=== PATIENT | female | born 1940 | race Caucasian/White ===

== ENCOUNTER 2017-02-18 10:41 | Emergency (ER) | payer OTHER, BC ==
[~2017-02-18] VITALS: Ht 152.4 cm; Wt 82.0 kg
[~2017-02-18 10:41] MED LIST: ASPIR 8181 M1 PO; ASPIR-TRIN325 M1 PO; CELEXA20 MG PO; Flonase BOTH NARES; Klonopin PO; LEXAPRO20 MG PO; NORCO 10/3251 TABLET PO; OMEGA 3-6-91200 MG PO; PERCOCET 10/1 TABLET PO; PRILOSEC20 MG PO; TOPROL XL50 MG PO; Toprol XL PO; Tylenol Regular Stre PO; Vicodin,Lortab 5/500 PO; ZOCOR10 MG PO
[2017-02-18] MEDS ORDERED: LYRICA50 MG PO (10:55)
[2017-02-18] MEDS ORDERED: BUPROPION XL150 MG PO (10:56)
[2017-02-18] MEDS ORDERED: LIOTHYRONINE SO5 MCG PO (10:57)
[2017-02-18] MEDS ORDERED: LEVOTHYROXINE88 MCG PO (10:57)
[2017-02-18] MEDS ORDERED: LAMICTAL25 MG PO (10:58)
[2017-02-18] MEDS ORDERED: PANTOPRAZOLE SO40 MG PO (11:00)
[2017-02-18] MEDS ORDERED: FOSAMAX70 MG PO (11:00)
[2017-02-18 11:53] LABS: BASOPHIL COUNT 0.1 K/uL (0-0.1); EOSINOPHIL (%) 1.6 % (0-5); EOSINOPHIL COUNT 0.2 K/uL (0-0.3); IMMATURE GRANULOCYTE (%) 0.3 % (0.0-0.7); INSTRUMENT ABS NEUTROPHIL CT 7.8 K/uL; LYMPHOCYTE COUNT 3.2 K/uL (1.0-2.8); MCH 24.1 PG (29.0-34.0); MCV 80.3 FL (83-99); MEAN PLAT.VOLUME 8.9 uM^3 (9.5-12.4); MONOCYTE (%) 8.6 % (3-12); MONOCYTE COUNT 1.1 K/uL (0-0.8); NEUTROPHIL (%) 63.1 % (45-76); NEUTROPHIL COUNT 7.8 K/uL (1.8-6.4); PLATELET COUNT 365 K/uL (156-360); RBC DIS.WIDTH-SD 46.4 % (39-53); RED BLOOD COUNT 4.73 M/uL (3.80-5.20); WHITE BLOOD COUNT 12.3 K/uL (4.1-10.2)
[2017-02-18 12:05] LABS: CHLORIDE 105 mEq/L (99-109)
[2017-02-18 12:06] LABS: POTASSIUM 4.3 mEq/L (3.7-5.4); SODIUM 140 mEq/L (136-147)
[2017-02-18 12:08] LABS: GLUCOSE 97 mg/dL (70-99)
[2017-02-18 12:09] LABS: ANION GAP 8 MEQ/L (2-14)
[2017-02-18 12:10] LABS: TOTAL BILIRUBIN 0.3 mg/dL (0.0-1.0)
[2017-02-18 12:11] LABS: ALKALINE PHOSPHATASE 71 IU/L (3-129); GFR ESTIMATE (CALCULATED) 58 mL/min/
[2017-02-18 12:13] LABS: UREA NITROGEN (BUN) 20 mg/dL (9-23)
[2017-02-18 12:17] LABS: TROP-I INTERPRETATION NEGATIVE; TROPONIN-I < 0.01 ng/mL (0.0-0.30)
[2017-02-18 13:56] LABS: TROP-I INTERPRETATION NEGATIVE; TROPONIN-I < 0.01 ng/mL (0.0-0.30)
[2017-02-18 14:26] VITALS: BP 123/56
== END 2017-02-18 14:29 | disposition home or self-care (01) ==
LOC: EME 10:41
PROVIDERS: Emergency Medicine
DX: R07.89 Other chest pain (principal); K21.9 Gastro-esophageal reflux disease without esophagitis; E78.5 Hyperlipidemia, unspecified; E03.9 Hypothyroidism, unspecified; Z79.82 Long term (current) use of aspirin
CPT/HCPCS: 71010; 80053; 84484; 85025; 93005; 99281; 99285